=== PATIENT | male | born 1985 | race Caucasian/White ===

== ENCOUNTER 2017-07-08 08:19 | Emergency (ER) | payer MEDICAID ==
[~2017-07-08] VITALS: Ht 172.7 cm; Wt 69.3 kg
[2017-07-08 08:22] VITALS: Ht 172.7 cm; Wt 69.3 kg
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
[2017-07-08] MEDS ORDERED: FLUT9.9S NASAL (09:14)
[2017-07-08] MEDS ORDERED: IBUP-1542 PO (09:14)
== END 2017-07-08 09:40 | disposition home or self-care (01) ==
LOC: FTE 08:19
DX: S02.2XXA Fracture of nasal bones, initial encounter for closed fracture (principal); Y04.0XXA Assault by unarmed brawl or fight, initial encounter
CPT/HCPCS: 70486; Z7502